=== PATIENT | female | born 1980 | race Caucasian/White ===

== ENCOUNTER 2017-10-08 16:42 | Emergency (ER) | payer MEDICARE, MEDICAID ==
[~2017-10-08] VITALS: Ht 167.6 cm; Wt 98.0 kg
[~2017-10-08 16:42] MED LIST: PARO40TA2 PO; PERC5TAB12 PO; SUMA6P SQ; TOPI100 PO; XANA2TAB2 PO
[2017-10-08 17:05] VITALS: BP 135/64; PULSE 71; RESP 16; TEMP 98.5; O2SAT 100
[2017-10-08 19:01] VITALS: BP 115/52; PULSE 82; RESP 16; O2SAT 100
[2017-10-08] MEDS ORDERED: LIDOCAINE HCL 1% 50 ML VIAL INFIL ONE (19:30)
[2017-10-08] MEDS ORDERED: oxyCODONE/ACETAMINOPHEN 5 MG/325 MG TAB PO ONE (19:30)
[2017-10-08] MEDS ORDERED: LIDOCAINE HCL 1% PF 10 ML VIAL INFIL ONE (19:45)
--- NOTE | 2017-10-08 20:23 | PD ---
HPI Chief Complaint: Skin Problem Time Seen by Provider: 19:11 Travel History International Travel<30 days: No Contact w/Intl Traveler<30days: No Traveled to known affect area: No History of Present Illness HPI Patient is a 37 year old female who comes in complaining of a painful abscess to her left breast. She says it has been there for about a month. She was seen at another hospital 2 weeks ago, given IV antibiotics and sent home without any prescriptions per patient. She says it got better, but then got worse again in the past few days. She reports drainage of pus earlier in the week. She has not taken anything for the pain. She denies fever or chills. Touching it makes the pain worse. Severity is moderate. PFSH Past Medical History Hx Anticoagulant Therapy: No Arthritis: No Asthma: Yes (CHILDHOOD) Heart Rhythm Problems: Yes Cancer: No Cardiovascular Problems: Yes (HTN, CHOL) High Cholesterol: Yes Chest Pain: Yes Congestive Heart Failure: No COPD: No Cerebrovascular Accident: No Diabetes: No Diminished Hearing: No Endocrine: No GERD: No Genitourinary: No Headaches: No Hepatitis: No Hiatal Hernia: No Hypertension: Yes Immune Disorder: No Implanted Vascular Access Dvce: No Kidney Stones: No Musculoskeletal: Yes Neurologic: No Psychiatric: No Reproductive: No Respiratory: Yes Migraines: Yes Myocardial Infarction: Yes ( 2004; MITRAL VALVE PROLAPSE) Renal Failure: No Seizures: Yes Sleep Apnea: No Ulcer: No Influenza Vaccination: No ?: Not : 4 Para: 2 Miscarriage: 2 Tubal Ligation: Yes Past Surgical History Abdominal Surgery: No Appendectomy: No Cardiac Surgery: Yes (DX MVP) Cholecystectomy: No Ear Surgery: No Endocrine Surgery: No Eye Surgery: No Genitourinary Surgery: No Gynecologic Surgery: Yes (TUBAL LIGATION) Oral Surgery: No Thoracic Surgery: No Other Surgery: Yes (BREAST AUGMANTATION) Social History Alcohol Use: Yes (SOCIAL) Tobacco Use: Yes (1 PPD) Substance Use: No Allergies-Medications (Allergen,Severity, Reaction): Coded Allergies: diatrizoate meglumine (Unverified Allergy, Severe, Hives, 10/08/17) gadobenic acid (Unverified Allergy, Severe, Hives, 10/08/17) gadodiamide (Unverified Allergy, Severe, Hives, 10/08/17) gadoteridol (Unverified Allergy, Severe, Hives, 10/08/17) iodine (Unverified Allergy, Severe, ITCH, 10/08/17) iodixanol (Unverified Allergy, Severe, Hives, 10/08/17) iohexol (Unverified Allergy, Severe, Hives, 10/08/17) potassium iodide (Unverified Allergy, Severe, ITCH, 10/08/17) povidone-iodine (Unverified Allergy, Severe, ITCH, 10/08/17) sodium iodide (Unverified Allergy, Severe, ITCH, 10/08/17) Reported Meds & Prescriptions Reported Meds & Active Scripts Active Keflex (Cephalexin) 500 Mg Capsule 500 Mg PO Q6H 7 Days Bactrim DS (Sulfamethoxazole-Trimethoprim) 800-160 Mg Tab 1 Tab PO BID Review of Systems Except as stated in HPI: all other systems reviewed are Neg General / Constitutional: No: Fever, Chills HENT: No: Headaches, Lightheadedness Cardiovascular: No: Chest Pain or Discomfort Respiratory: No: Shortness of Breath Gastrointestinal: No: Nausea, Vomiting Skin: Positive Lesions Neurologic: No: Weakness, Dizziness Physical Exam Narrative GENERAL: Awake and alert, in no acute distress. SKIN: 4cm area of erythema on the lateral side of the left breast. 2cm area of fluctuance. HEAD: Atraumatic. Normocephalic. EYES: Pupils equal and round. No scleral icterus. ENT: Mucous membranes pink and moist. NECK: Trachea midline. No JVD. CARDIOVASCULAR: Regular rate and rhythm. No murmur appreciated. RESPIRATORY: No accessory muscle use. Clear to auscultation. Breath sounds equal bilaterally. MUSCULOSKELETAL: No obvious deformities. No clubbing. No cyanosis. No edema. NEUROLOGICAL: Awake and alert. No obvious cranial nerve deficits. Motor grossly within normal limits. Normal speech. PSYCHIATRIC: Appropriate mood and affect; insight and judgment normal. Data Data Last Documented VS Vital Signs Date Time Temp Pulse Resp B/P (MAP) Pulse Ox O2 Delivery O2 Flow Rate FiO2 10/08/17 20:54 76 16 130/72 (91) 100 10/08/17 19:01 Room Air 10/08/17 17:05 98.5 Orders Orders Oxycodone-Acetamin 5-325 Mg (Percocet (10/08/17 19:30) Lidocaine Pf 1% Inj (Xylocaine-Mpf 1% In (10/08/17 19:45) Ed Discharge Order (10/08/17 20:29) [facility] Medical Decision Making Medical Screen Exam Complete: Yes Emergency Medical Condition: Yes Medical Record Reviewed: Yes Differential Diagnosis Abscess vs cellulitis vs insect bite Narrative Course Patient is a 37-year-old male comes in complaining of a painful sore to the left side of her breast. She denies any other breast issues. Exam shows evidence of cellulitis with an abscess. Abscess was drained. Patient given pain medicine. She will be discharged with prescriptions for Bactrim and Keflex. Advised to follow-up with a primary care doctor. Advised to return to the ED as needed for any worsening symptoms. Procedures Procedure Narrative INCISION AND DRAINAGE OF ABSCESS: The area was prepped and was sterilely draped. A subcutaneous wheal of 1 % Xylocaine with a total number 8 mL was used to anesthetize the area properly. A number 11 scalpel was used to make a 1 -cm incision across the area of the abscess. The abscess was drained, complex loculations were broken down, and irrigated with normal saline. Diagnosis Primary Impression: Cellulitis and abscess of unspecified site Referrals: Franki Jackson MD call for appointment Patient Instructions: Abscess (ED), General Instructions Additional Instructions: Take all of your antibiotic. Apply warm compresses to keep the area open and draining. Take Tylenol or ibuprofen as needed for pain. Follow-up with a general surgeon to make sure everything is healing well. Follow-up with a primary care doctor. Return to the ED as needed for any worsening symptoms. Scripts Cephalexin (Keflex) 500 Mg Capsule 500 MG PO Q6H for Infection for 7 Days, #28 CAP 0 Refills Prov: Elaina Singh MD 10/08/17 Sulfamethoxazole-Trimethoprim (Bactrim DS) 800-160 Mg Tab 1 TAB PO BID for Infection, #14 TAB 0 Refills Prov: Elaina Singh MD 10/08/17 Disposition: 01 DISCHARGE HOME Condition: Stable Elaina Singh MD Oct 08, 2017 20:23
[2017-10-08] MEDS ORDERED: BACT800T5 PO (20:29)
[2017-10-08] MEDS ORDERED: CEPH-460 PO (20:29)
[2017-10-08 20:54] VITALS: BP 130/72
== END 2017-10-08 20:56 | disposition home or self-care (01) ==
LOC: PHED 16:42
DX: N61.1 Abscess of the breast and nipple (principal); F17.200 Nicotine dependence, unspecified, uncomplicated
CPT/HCPCS: 10060

== ENCOUNTER 2017-11-14 23:54 | Emergency (ER) | payer MEDICARE, MEDICAID ==
[~2017-11-14] VITALS: Ht 167.6 cm; Wt 96.7 kg
[~2017-11-14 23:54] MED LIST changes: +BACT800T5 PO; +CEPH-460 PO; -PARO40TA2 PO; -PERC5TAB12 PO; -SUMA6P SQ; -TOPI100 PO; -XANA2TAB2 PO
[2017-11-14 23:59] VITALS: BP 123/60; PULSE 90; RESP 20; TEMP 98.6
--- NOTE | 2017-11-15 00:38 | PD ---
HPI Chief Complaint: Skin Problem Time Seen by Provider: 00:36 Travel History International Travel<30 days: No Contact w/Intl Traveler<30days: No Traveled to known affect area: No History of Present Illness HPI 37-year-old female patient with previous history of staph skin infections, presents to the ER today because she states that 2 days ago she had a pustule on her lower abdominal wall and then the area started getting more swollen and tender and red. She states that the area just writing. She denies any other issues. She noticed that it has been draining a small amount of bloody fluid. Modifying Factors: None Associated Signs & Symptoms: Abdominal wall swelling and redness Risk Factors: History of staph skin infections PFSH Past Medical History Hx Anticoagulant Therapy: No Arthritis: No Asthma: Yes (CHILDHOOD) Heart Rhythm Problems: Yes Cancer: No Cardiovascular Problems: Yes (HTN, CHOL) High Cholesterol: Yes Chest Pain: Yes Congestive Heart Failure: No COPD: No Cerebrovascular Accident: No Diabetes: No Diminished Hearing: No Endocrine: No GERD: No Genitourinary: No Headaches: No Hepatitis: No Hiatal Hernia: No Hypertension: Yes Immune Disorder: No Implanted Vascular Access Dvce: No Kidney Stones: No Medical other: Yes (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)) Musculoskeletal: Yes Neurologic: No Psychiatric: No Reproductive: No Respiratory: Yes Migraines: Yes Myocardial Infarction: Yes ( 2004; MITRAL VALVE PROLAPSE) Renal Failure: No Seizures: Yes Sleep Apnea: No Ulcer: No Tetanus Vaccination: Never Vaccinated ?: Not LMP: 2012 : 4 Para: 2 Miscarriage: 2 Tubal Ligation: Yes Past Surgical History Abdominal Surgery: No Appendectomy: No Cardiac Surgery: Yes (DX MVP) Cholecystectomy: No Ear Surgery: No Endocrine Surgery: No Eye Surgery: No Genitourinary Surgery: No Gynecologic Surgery: Yes (TUBAL LIGATION, UTERINE ABLATION: 2012) Oral Surgery: No Thoracic Surgery: No Other Surgery: Yes (BREAST AUGMENTATION) Social History Alcohol Use: Yes ("SOCIALLY ONCE A YEAR") Tobacco Use: Yes (1 PPD) Substance Use: No Allergies-Medications (Allergen,Severity, Reaction): Coded Allergies: diatrizoate meglumine (Unverified Allergy, Severe, Hives, 11/15/17) gadobenic acid (Unverified Allergy, Severe, Hives, 11/15/17) gadodiamide (Unverified Allergy, Severe, Hives, 11/15/17) gadoteridol (Unverified Allergy, Severe, Hives, 11/15/17) iodine (Unverified Allergy, Severe, ITCH, 11/15/17) iodixanol (Unverified Allergy, Severe, Hives, 11/15/17) iohexol (Unverified Allergy, Severe, Hives, 11/15/17) potassium iodide (Unverified Allergy, Severe, ITCH, 11/15/17) povidone-iodine (Unverified Allergy, Severe, ITCH, 11/15/17) sodium iodide (Unverified Allergy, Severe, ITCH, 11/15/17) Reported Meds & Prescriptions Reported Meds & Active Scripts Active No Active Prescriptions or Reported Medications Review of Systems Except as stated in HPI: all other systems reviewed are Neg Physical Exam Narrative GENERAL: Well-developed young female patient currently in mild distress. Awake and oriented 3. SKIN: Focused skin assessment warm/dry. HEAD: Atraumatic. Normocephalic. EYES: Pupils equal and round. No scleral icterus. No injection or drainage. ENT: No nasal bleeding or discharge. Mucous membranes pink and moist. NECK: Trachea midline. No JVD. CARDIOVASCULAR: Regular rate and rhythm. No murmur appreciated. RESPIRATORY: No accessory muscle use. Clear to auscultation. Breath sounds equal bilaterally. GASTROINTESTINAL: Abdomen soft, there is a 4 cm area of induration and tenderness on the lower abdominal wall with surrounding erythema and there is notable pus drainage from a small puncture wound, nondistended. Hepatic and splenic margins not palpable. MUSCULOSKELETAL: No obvious deformities. No clubbing. No cyanosis. No edema. NEUROLOGICAL: Awake and alert. No obvious cranial nerve deficits. Motor grossly within normal limits. Normal speech. PSYCHIATRIC: Appropriate mood and affect; insight and judgment normal. Data Data Last Documented VS Vital Signs Date Time Temp Pulse Resp B/P (MAP) Pulse Ox O2 Delivery O2 Flow Rate FiO2 11/14/17 23:59 98.6 90 20 123/60 (81) Orders Orders Lidocaine 1% Inj (50 Ml) (Xylocaine 1% I (11/15/17 00:45) Lidocaine 1% Inj (Xylocaine 1% Inj) (11/15/17 00:45) Lidocaine 1% Inj (Xylocaine 1% Inj) (11/15/17 00:40) Ed Discharge Order (11/15/17 01:31) Sulfamet-Trimeth Ds 800-160 Mg (Bactrim (11/15/17 01:45) MDM Medical Decision Making Medical Screen Exam Complete: Yes Emergency Medical Condition: Yes Medical Record Reviewed: Yes Differential Diagnosis Abdominal wall abscess Narrative Course Abdominal wall abscess was drained by me in the ER. Patient was given Bactrim as well since there is a large area of surrounding induration. Planning to release with follow-up for reevaluation of wound in 2 days. Return for any worsening of pain, swelling, fevers, and as needed. The plan has been discussed with her and she states understanding. Procedures Procedure Narrative INCISION AND DRAINAGE OF ABSCESS: The area was prepped and was sterilely draped. A subcutaneous wheal of % Xylocaine 1% with a total number 3 cc small mL was used to anesthetize the area. The area was properly anesthetized. A small scalpel was used to make a 1-] -cm incision across the area of the abscess. Cultures were obtained. The abscess was drained an irrigated with normal saline. iodoform packing was placed in the wound. Sterile dressing applied. Patient advised to have packing removed in two days. Diagnosis Primary Impression: Abdominal wall abscess Med/Other Pt SpecificInfo: Prescription(s) given Scripts Ibuprofen (Ibuprofen) 600 Mg Tab 600 MG PO Q6H Y for Pain/Inflammation, #20 TAB 0 Refills Prov: Rod Keith MD 11/15/17 Sulfamethoxazole-Trimethoprim (Bactrim DS) 800-160 Mg Tab 1 TAB PO BID for Infection, #14 TAB 0 Refills Prov: Rod Keith MD 11/15/17 Disposition: 01 DISCHARGE HOME Condition: Stable Rod Keith MD Nov 15, 2017 00:38
[2017-11-15] MEDS ORDERED: LIDOCAINE HCL 1% 20 ML VIAL ONE (00:40)
[2017-11-15] MEDS ORDERED: LIDOCAINE HCL 1% 50 ML VIAL INFIL ONE (00:45)
[2017-11-15] MEDS ORDERED: LIDOCAINE HCL 1% 20 ML VIAL INFIL ONE (00:45)
[2017-11-15] MEDS ORDERED: BACT800T5 PO (01:33)
[2017-11-15] MEDS ORDERED: IBUP-232 PO (01:33)
[2017-11-15] MEDS ORDERED: SULFAMETHOXAZOLE-TRIMETHOPRIM DS 800-160 MG TAB PO ONE (01:45)
== END 2017-11-15 02:03 | disposition home or self-care (01) ==
LOC: PHED 23:54
DX: L02.211 Cutaneous abscess of abdominal wall (principal); I10 Essential (primary) hypertension; B95.62 Methicillin resistant Staphylococcus aureus infection as the cause of diseases classified elsewhere; Z72.0 Tobacco use
CPT/HCPCS: 10061; 86403; 87070; 87186

== ENCOUNTER 2018-02-01 12:01 | Observation (INO) | payer MEDICARE, MEDICAID ==
[~2018-02-01] VITALS: Ht 167.6 cm; Wt 100.0 kg
[2018-02-01] VITALS (8 sets, daily range): BP systolic 98–138; BP diastolic 49–86; PULSE 69–97; RESP 15–22; TEMP 95.7–98.4; O2SAT 96–100
[~2018-02-01 12:01] MED LIST changes: -CEPH-460 PO; +IBUP-232 PO
[2018-02-01] MEDS ORDERED: OXYC30TA PO (12:19)
[2018-02-01] MEDS ORDERED: SOMA350T PO (12:19)
[2018-02-01] MEDS ORDERED: SODIUM CHLOR 0.9% 1000 ML INJ 1,000 ML IV ONE ×2 (12:29→14:45)
[2018-02-01] MEDS ORDERED: SODIUM CHLORIDE 0.9% FLUSH 10 ML FLUSH IVF PRN (12:30)
--- NOTE | 2018-02-01 12:32 | PD ---
HPI Chief Complaint: Medical Clearance Time Seen by Provider: 12:04 Travel History International Travel<30 days: No Contact w/Intl Traveler<30days: No Traveled to known affect area: No History of Present Illness HPI 37-year-old female presents to the emergency department for evaluation of dizziness, slurred speech. Patient does not know what time it started, believes she woke up with these symptoms. Patient denies any exacerbating or alleviating factors with the dizziness and states it is steady. She also states she is having difficulty getting words out and feels like her speech is slurred. She denies any headache or visual changes. She reports generalized weakness, but no specific extremity weakness. Patient denies any alcohol or illicit drug use. She denies any chest pain or shortness breath. She denies abdominal pain. No nausea, vomiting, diarrhea. Patient reports history of chronic neck pain, states she had a stroke in 2003. Other than chronic neck pain, she denies any other pain at this time. She states that her mother and son were concerned so they called EMS. Moderate severity. PFSH Past Medical History Hx Anticoagulant Therapy: No Arthritis: No Asthma: Yes (CHILDHOOD) Heart Rhythm Problems: Yes Cancer: No Cardiovascular Problems: Yes (HTN, CHOL) High Cholesterol: Yes Chest Pain: Yes Congestive Heart Failure: No COPD: No Cerebrovascular Accident: No Diabetes: No Diminished Hearing: No Endocrine: No GERD: No Genitourinary: No Headaches: No Hepatitis: No Hiatal Hernia: No Hypertension: Yes Immune Disorder: No Implanted Vascular Access Dvce: No Kidney Stones: No Musculoskeletal: Yes Neurologic: No Psychiatric: No Reproductive: No Respiratory: Yes Migraines: Yes Myocardial Infarction: Yes ( 2004; MITRAL VALVE PROLAPSE) Renal Failure: No Seizures: Yes Sleep Apnea: No Ulcer: No Tetanus Vaccination: < 5 Years ?: Not LMP: 2002 : 4 Para: 2 Miscarriage: 2 Tubal Ligation: Yes Past Surgical History Abdominal Surgery: No Appendectomy: No Cardiac Surgery: Yes (DX MVP) Cholecystectomy: No Ear Surgery: No Endocrine Surgery: No Eye Surgery: No Genitourinary Surgery: No Gynecologic Surgery: Yes (TUBAL LIGATION, UTERINE ABLATION: 2012) Oral Surgery: No Thoracic Surgery: No Other Surgery: Yes (BREAST AUGMENTATION) Social History Alcohol Use: No (DENIES) Tobacco Use: Yes (1 PPD) Substance Use: Yes (MARIJUANA) Allergies-Medications (Allergen,Severity, Reaction): Coded Allergies: diatrizoate meglumine (Unverified Allergy, Severe, Hives, 11/15/17) gadobenic acid (Unverified Allergy, Severe, Hives, 11/15/17) gadodiamide (Unverified Allergy, Severe, Hives, 11/15/17) gadoteridol (Unverified Allergy, Severe, Hives, 11/15/17) iodine (Unverified Allergy, Severe, ITCH, 11/15/17) iodixanol (Unverified Allergy, Severe, Hives, 11/15/17) iohexol (Unverified Allergy, Severe, Hives, 11/15/17) potassium iodide (Unverified Allergy, Severe, ITCH, 11/15/17) povidone-iodine (Unverified Allergy, Severe, ITCH, 11/15/17) sodium iodide (Unverified Allergy, Severe, ITCH, 11/15/17) Reported Meds & Prescriptions Reported Meds & Active Scripts Active Reported Oxycodone (Oxycodone HCl) 30 Mg Tab 30 Mg PO Q6H PRN Soma (Carisoprodol) 350 Mg Tab 350 Mg PO QID PRN Review of Systems Except as stated in HPI: all other systems reviewed are Neg Physical Exam Narrative GENERAL: Well-nourished, well-developed female patient, afebrile. Patient is alert and oriented to person, place, and time. SKIN: Focused skin assessment warm/dry. HEAD: Normocephalic. Atraumatic ENT: Mucosa pink and moist. No erythema or exudates. No uvular edema. No uvular , palatal, or tonsillar deviation. Airway patent. Nasal turbinates appear normal without nasal blood, purulent drainage or septal hematoma. Bilateral tympanic membranes slightly erythematous without loss of landmarks or perforation. EYES: No scleral icterus. No injection or drainage. PERRLA. NECK: Supple, trachea midline. No JVD or lymphadenopathy. CARDIOVASCULAR: Regular rate and rhythm without murmurs, gallops, or rubs. Bilateral radial and pedal pulses are 2+ RESPIRATORY: Breath sounds equal bilaterally. No accessory muscle use. Lung sounds are clear to auscultation. GASTROINTESTINAL: Abdomen soft, non-tender, nondistended. No abdominal tenderness to palpation peer MUSCULOSKELETAL: No cyanosis, or edema. Bilateral upper and lower extremity strength 5/5. All extremities are shaky on exam. All extremities are neurovascularly intact. BACK: Nontender without obvious deformity. No CVA tenderness. NEUROLOGICAL: Awake and alert. Cranial nerves II through XII intact. Motor and sensory grossly within normal limits. Five out of 5 muscle strength in all muscle groups. Speech is slightly slurred, does have difficulty getting words out on exam. Finger to nose is normal bilaterally. Heel to hooker is normal bilaterally. Data Data Last Documented VS Vital Signs Date Time Temp Pulse Resp B/P (MAP) Pulse Ox O2 Delivery O2 Flow Rate FiO2 02/01/18 14:37 85 127/61 (83) 92 106/49 (68) 55 98/55 (69) 02/01/18 13:58 98.1 02/01/18 12:43 98 Room Air 02/01/18 12:09 15 Orders Orders Electrocardiogram (02/01/18 12:29) Ed Urine Pregnancytest Poc (02/01/18 12:29) Complete Blood Count With Diff (02/01/18 12:29) Comprehensive Metabolic Panel (02/01/18 12:29) Magnesium (Mg) (02/01/18 12:29) Ckmb (Isoenzyme) Profile (02/01/18 12:29) Troponin I (02/01/18 12:29) Act Partial Throm Time (Ptt) (02/01/18 12:29) Prothrombin Time / Inr (Pt) (02/01/18 12:29) Urinalysis - C+S If Indicated (02/01/18 12:29) Ct Brain W/O Iv Contrast(Rout) (02/01/18 12:29) Ecg Monitoring (02/01/18 12:29) Iv Access Insert/Monitor (02/01/18 12:29) Oximetry (02/01/18 12:29) Sodium Chloride 0.9% Flush (Ns Flush) (02/01/18 12:30) Sodium Chlor 0.9% 1000 Ml Inj (Ns 1000 M (02/01/18 12:29) Drug Screen, Random Urine (02/01/18 12:32) Orthostatic Vital Signs (02/01/18 14:15) Sodium Chlor 0.9% 1000 Ml Inj (Ns 1000 M (02/01/18 14:45) Urine Culture (02/01/18 13:53) Admit Order (Ed Use Only) (02/01/18 15:27) Labs Laboratory Tests Test 02/01/18 12:30 02/01/18 13:53 White Blood Count 6.6 TH/MM3 Red Blood Count 4.02 MIL/MM3 Hemoglobin 13.5 GM/DL Hematocrit 37.7 % Mean Corpuscular Volume 93.8 FL Mean Corpuscular Hemoglobin 33.6 PG Mean Corpuscular Hemoglobin Concent 35.9 % Red Cell Distribution Width 13.6 % Platelet Count 251 TH/MM3 Mean Platelet Volume 7.7 FL Neutrophils (%) (Auto) 40.4 % Lymphocytes (%) (Auto) 43.0 % Monocytes (%) (Auto) 6.5 % Eosinophils (%) (Auto) 8.7 % Basophils (%) (Auto) 1.4 % Neutrophils # (Auto) 2.6 TH/MM3 Lymphocytes # (Auto) 2.8 TH/MM3 Monocytes # (Auto) 0.4 TH/MM3 Eosinophils # (Auto) 0.6 TH/MM3 Basophils # (Auto) 0.1 TH/MM3 CBC Comment DIFF FINAL Differential Comment Prothrombin Time 10.0 SEC Prothromb Time International Ratio 1.0 RATIO Activated Partial Thromboplast Time 27.8 SEC Blood Urea Nitrogen 4 MG/DL Creatinine 0.80 MG/DL Random Glucose 94 MG/DL Total Protein 6.3 GM/DL Albumin 3.0 GM/DL Calcium Level 8.5 MG/DL Magnesium Level 1.7 MG/DL Alkaline Phosphatase 65 U/L Aspartate Amino Transf (AST/SGOT) 43 U/L Alanine Aminotransferase (ALT/SGPT) 40 U/L Total Bilirubin 0.2 MG/DL Sodium Level 141 MEQ/L Potassium Level 3.6 MEQ/L Chloride Level 107 MEQ/L Carbon Dioxide Level 25.3 MEQ/L Anion Gap 9 MEQ/L Estimat Glomerular Filtration Rate 80 ML/MIN Total Creatine Kinase 51 U/L Troponin I LESS THAN 0.02 NG/ML Urine Color YELLOW Urine Turbidity HAZY Urine pH 6.5 Urine Specific [place] 1.011 Urine Protein NEG mg/dL Urine Glucose (UA) NEG mg/dL Urine Ketones NEG mg/dL Urine Occult Blood NEG Urine Nitrite NEG Urine Bilirubin NEG Urine Urobilinogen LESS THAN 2.0 MG/DL Urine Leukocyte Esterase MOD Urine RBC 1 /hpf Urine WBC 7 /hpf Urine Squamous Epithelial Cells 2 /hpf Urine Amorphous Sediment RARE Urine Bacteria OCC /hpf Microscopic Urinalysis Comment CATH-CULTURE IND Urine Opiates Screen NEG Urine Barbiturates Screen NEG Urine Amphetamines Screen NEG Urine Benzodiazepines Screen NEG Urine Cocaine Screen NEG Urine Cannabinoids Screen NEG MDM Medical Decision Making Medical Screen Exam Complete: Yes Emergency Medical Condition: Yes Medical Record Reviewed: Yes Differential Diagnosis vertigo vs. CVA vs. TIA vs. electrolyte abnormality vs. dehydration vs. UTI vs. intracranial hemorrhage Narrative Course 37 year old female presents to the emergency department for evaluation of dizziness, slurred speech, unknown onset. EKG shows SR, HR 97, no acute ST changes. CBC, CMP, magnesium, CK, troponin, PTT, PT/INR, UA, UPT, UDS are ordered and pending. Patient is given NS 1 L IV bolus. CBC shows no acute abnormality. CMP shows no acute abnormality. Magnesium is 1.7. CK is 51. Troponin is less than 0.02. Coags are unremarkable. UA shows moderate leukocyte esterase, 7 WBC. UPT is negative. UDS is negative. Metastatic vital signs do show orthostatic hypotension. Patient is given second liter normal saline IV bolus. I discussed the case with my attending physician, Dr. Atkins, who is also examined patient. He agrees with plan and disposition. Patient will be brought in for observation for further evaluation. Diagnosis Primary Impression: Dizziness Additional Impressions: Generalized weakness Orthostatic hypotension Admitting Information Admitting Physician Requests: Observation Britt Hayes February 01, 2018 12:32
[2018-02-01 12:58] LABS: AUTOMATED NEUTROPHIL # 2.6 TH/MM3 (1.8-7.7); BASOPHIL # 0.1 TH/MM3 (0-0.2); BASOPHIL % 1.4 % (0.0-2.0); EOSINOPHIL # 0.6 TH/MM3 (0-0.4); EOSINOPHIL % 8.7 % (0.0-4.0); HEMATOCRIT 37.7 % (35.0-46.0); HEMOGLOBIN 13.5 GM/DL (11.6-15.3); LYMPHOCYTE # 2.8 TH/MM3 (1.0-4.8); MEAN CELL VOLUME 93.8 FL (80.0-100.0); MEAN CORPUSCULAR HEMOGLOBIN 33.6 PG (27.0-34.0); MEAN CORPUSCULAR HGB CONC 35.9 % (32.0-36.0); MEAN PLATELET VOLUME 7.7 FL (7.0-11.0); MONO % 6.5 % (0.0-8.0); MONOCYTE # 0.4 TH/MM3 (0-0.9); NEUT % 40.4 % (16.0-70.0); PLATELET COUNT 251 TH/MM3 (150-450); RED BLOOD COUNT 4.02 MIL/MM3 (4.00-5.30); RED CELL DISTRIBUTION WIDTH 13.6 % (11.6-17.2); WHITE BLOOD COUNT 6.6 TH/MM3 (4.0-11.0)
[2018-02-01 13:14] LABS: ALT (GPT) 40 U/L (10-53); AST (GOT) 43 U/L (15-37); BICARBONATE 25.3 MEQ/L (21.0-32.0); BLOOD UREA NITROGEN 4 MG/DL (7-18); CALCIUM 8.5 MG/DL (8.5-10.1); CHLORIDE 107 MEQ/L (98-107); GLOMERULAR FILTRATION RATE 80 ML/MIN (>89); GLUCOSE,RANDOM 94 MG/DL (74-106); MAGNESIUM 1.7 MG/DL (1.5-2.5); SODIUM (NA) 141 MEQ/L (136-145)
[2018-02-01 13:18] LABS: ALKALINE PHOSPHATASE 65 U/L (45-117); TOTAL BILIRUBIN ADULT 0.2 MG/DL (0.2-1.0); TOTAL PROTEIN 6.3 GM/DL (6.4-8.2); TROPONIN I LESS THAN 0.02 NG/ML (0.02-0.05)
--- NOTE | 2018-02-01 14:14 | RADRPT ---
EXAM DATE: 02/01/2018 2:01 PM EDT AGE/SEX: 37 years / Female INDICATIONS: Weakness, slurred speech, unsteady gait CLINICAL DATA: This is the patient's initial encounter. Patient reports that signs and symptoms have been present for 1 day and indicates a pain score of 0/10. MEDICAL/SURGICAL HISTORY: Cardiovascular disease. Hypertension. Tubal ligation. RADIATION DOSE: 66.34 CTDI (mGy) COMPARISON: No prior [place] exams available for comparison. TECHNIQUE: CT of the head without contrast. Using automated exposure control and adjustment of the mA and/or kV according to patient size, radiation dose was kept as low as reasonably achievable to ob tain optimal diagnostic quality images. FINDINGS: Cerebrum: The ventricles are normal for age. No evidence of midline shift, mass lesion, hemorrhage or acute infarction. No extraaxial fluid collections are seen. Posterior Fossa: The cerebellum and brainstem are intact. The 4th ventricle is midline. The cerebe llopontine angle is unremarkable. Extracranial: The visualized portion of the orbits is intact. Skull: The calvaria is intact. No evidence of skull fracture. CONCLUSION: 1. No acute intracranial abnormality Electronically signed by: Gage Marroquin MD 02/01/2018 2:13 PM EDT
[2018-02-01 14:42] LABS: AMORPHOUS SEDIMENT, URINE RARE; BACTERIA, URINE OCC /hpf; BILIRUBIN, URINE NEG (NEG); BLOOD, URINE NEG (NEG); GLUCOSE,URINE NEG (NEG); KETONE, URINE NEG (NEG); NITRITE,URINE NEG (NEG); PH, URINE 6.5 (5.0-8.5); SQUAMOUS EPITHELIAL CELL URINE 2 /hpf (0-5); URINE COLOR YELLOW (YELLW/STRAW); URINE LEUKOCYTE ESTERASE MOD (NEG)
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
[2018-02-01] MEDS ORDERED: GLUCAGON 1 MG/ML VIAL OTHER PRN (16:15)
[2018-02-01] MEDS ORDERED: DEXTROSE 50% IN WATER 50 ML VIAL(D50) IV PUSH PRN (16:15)
[2018-02-01] MEDS ORDERED: ENALAPRILAT 1.25 MG/ML VIAL IV PUSH PRN (16:15)
[2018-02-01] MEDS ORDERED: SODIUM CHLORIDE 0.9% FLUSH 10 ML FLUSH IV FLUSH PRN (16:15)
--- NOTE | 2018-02-01 16:57 | PD ---
Data Data Last Documented VS Vital Signs Date Time Temp Pulse Resp B/P (MAP) Pulse Ox O2 Delivery O2 Flow Rate FiO2 02/01/18 14:37 85 127/61 (83) 92 106/49 (68) 55 98/55 (69) 02/01/18 13:58 98.1 02/01/18 12:43 98 Room Air 02/01/18 12:09 15 Orders Orders Electrocardiogram (02/01/18 12:29) Ed Urine Pregnancytest Poc (02/01/18 12:29) Complete Blood Count With Diff (02/01/18 12:29) Comprehensive Metabolic Panel (02/01/18 12:29) Magnesium (Mg) (02/01/18 12:29) Ckmb (Isoenzyme) Profile (02/01/18 12:29) Troponin I (02/01/18 12:29) Act Partial Throm Time (Ptt) (02/01/18 12:29) Prothrombin Time / Inr (Pt) (02/01/18 12:29) Urinalysis - C+S If Indicated (02/01/18 12:29) Ct Brain W/O Iv Contrast(Rout) (02/01/18 12:29) Ecg Monitoring (02/01/18 12:29) Iv Access Insert/Monitor (02/01/18 12:29) Oximetry (02/01/18 12:29) Sodium Chloride 0.9% Flush (Ns Flush) (02/01/18 12:30) Sodium Chlor 0.9% 1000 Ml Inj (Ns 1000 M (02/01/18 12:29) Drug Screen, Random Urine (02/01/18 12:32) Orthostatic Vital Signs (02/01/18 14:15) Sodium Chlor 0.9% 1000 Ml Inj (Ns 1000 M (02/01/18 14:45) Urine Culture (02/01/18 13:53) Admit Order (Ed Use Only) (02/01/18 15:27) Labs Laboratory Tests Test 02/01/18 12:30 02/01/18 13:53 White Blood Count 6.6 TH/MM3 Red Blood Count 4.02 MIL/MM3 Hemoglobin 13.5 GM/DL Hematocrit 37.7 % Mean Corpuscular Volume 93.8 FL Mean Corpuscular Hemoglobin 33.6 PG Mean Corpuscular Hemoglobin Concent 35.9 % Red Cell Distribution Width 13.6 % Platelet Count 251 TH/MM3 Mean Platelet Volume 7.7 FL Neutrophils (%) (Auto) 40.4 % Lymphocytes (%) (Auto) 43.0 % Monocytes (%) (Auto) 6.5 % Eosinophils (%) (Auto) 8.7 % Basophils (%) (Auto) 1.4 % Neutrophils # (Auto) 2.6 TH/MM3 Lymphocytes # (Auto) 2.8 TH/MM3 Monocytes # (Auto) 0.4 TH/MM3 Eosinophils # (Auto) 0.6 TH/MM3 Basophils # (Auto) 0.1 TH/MM3 CBC Comment DIFF FINAL Differential Comment Prothrombin Time 10.0 SEC Prothromb Time International Ratio 1.0 RATIO Activated Partial Thromboplast Time 27.8 SEC Blood Urea Nitrogen 4 MG/DL Creatinine 0.80 MG/DL Random Glucose 94 MG/DL Total Protein 6.3 GM/DL Albumin 3.0 GM/DL Calcium Level 8.5 MG/DL Magnesium Level 1.7 MG/DL Alkaline Phosphatase 65 U/L Aspartate Amino Transf (AST/SGOT) 43 U/L Alanine Aminotransferase (ALT/SGPT) 40 U/L Total Bilirubin 0.2 MG/DL Sodium Level 141 MEQ/L Potassium Level 3.6 MEQ/L Chloride Level 107 MEQ/L Carbon Dioxide Level 25.3 MEQ/L Anion Gap 9 MEQ/L Estimat Glomerular Filtration Rate 80 ML/MIN Total Creatine Kinase 51 U/L Troponin I LESS THAN 0.02 NG/ML Urine Color YELLOW Urine Turbidity HAZY Urine pH 6.5 Urine Specific [place] 1.011 Urine Protein NEG mg/dL Urine Glucose (UA) NEG mg/dL Urine Ketones NEG mg/dL Urine Occult Blood NEG Urine Nitrite NEG Urine Bilirubin NEG Urine Urobilinogen LESS THAN 2.0 MG/DL Urine Leukocyte Esterase MOD Urine RBC 1 /hpf Urine WBC 7 /hpf Urine Squamous Epithelial Cells 2 /hpf Urine Amorphous Sediment RARE Urine Bacteria OCC /hpf Microscopic Urinalysis Comment CATH-CULTURE IND Urine Opiates Screen NEG Urine Barbiturates Screen NEG Urine Amphetamines Screen NEG Urine Benzodiazepines Screen NEG Urine Cocaine Screen NEG Urine Cannabinoids Screen NEG MDM Supervised Visit with RICK: Yes Narrative Course The history, exam, and medical decision-making in the associated mid-level provider note were completed with my assistance. I reviewed and agree with the findings presented. I attest that I had a [id number] encounter with the patient on the same day, and personally performed and documented my assessment and findings in the medical record. *My assessment and Findings: 37-year-old woman, woke up with slurred speech and dizziness. Initial impression seems to be likely drug related. Also requires a stroke. Neuro exam at this point is normal except a little bit of sedation. No asymmetry. Initial workup here is normal. Still does not feel well. She is orthostatic with a history of some blood in her stool week or 2 ago. Hemoglobin is unremarkable. Recommend admission for observation. Diagnosis Primary Impression: Dizziness Additional Impressions: Orthostatic hypotension Generalized weakness Micah Atkins MD February 01, 2018 16:57
[2018-02-01] MEDS: INSULIN ASPART SUPPLEMENTAL SCALE SQ SCH ×2 (17:00→20:26)
[2018-02-01] MEDS ORDERED: NON-FORMULARY DRUG (Oxycodone 30 MG) PO PRN ×2 (18:15→18:30)
[2018-02-01] MEDS ORDERED: CARISOPRODOL 350 MG TAB PO PRN (18:15)
--- NOTE | 2018-02-01 18:53 | RADRPT ---
EXAM DATE: 02/01/2018 6:19 PM EDT AGE/SEX: 37 years / Female INDICATIONS: CVA. CLINICAL DATA: This is the patient's initial encounter. Patient reports that signs and symptoms have been present for 1 day and indicates a pain score of 0/10. MEDICAL/SURGICAL HISTORY: Hypercholesterolemia. Hypertension. DE. Seizures. Asthma. Tubal lig ation. Bone fusion in neck. Breast augmentation. COMPARISON: No prior [facility] exams available for comparison. No external comparison. VELOCITY PARAMETERS: ICA/CCA Ratio: Right 1.3 , Left 0.9 ICA: Right 114 cm/sec, Left 89 cm/sec CCA: Right 90 cm/sec, Left 102 cm/sec ECA: Right 101 cm/sec, Left 120 cm/sec Vertebral: Right 49 cm/sec antegrade, Left 40 cm/sec antegrade FINDINGS: Right Carotid: No significant stenosis is visualized. The waveforms are within normal limits. Left Carotid: No significant stenosis is visualized. The waveforms are within normal limits. Other: None. CONCLUSION: Negative for hemodynamically significant carotid stenosis. Electronically signed by: Piyush Hernandez MD 02/01/2018 6:51 PM EDT
[2018-02-01] MEDS ORDERED: ENOXAPARIN SODIUM 40 MG/0.4 ML SYRINGE SQ SCH (20:00)
[2018-02-01] MEDS: SODIUM CHLORIDE 0.9% FLUSH 10 ML FLUSH IV FLUSH SCH (20:26)
[2018-02-02] VITALS: BP 102/53; PULSE 67; RESP 20; TEMP 98; O2SAT 97
[2018-02-02] MEDS: LORazepam 0.5 MG TAB PO PRN ×2 (00:15→12:12)
[2018-02-02 04:00] VITALS: BP 96/53; PULSE 66; RESP 18; TEMP 98.2; O2SAT 95
[2018-02-02 07:37] VITALS: BP 121/98; PULSE 83; RESP 18; TEMP 98.2; O2SAT 96
[2018-02-02 08:00] VITALS: PULSE 81
[2018-02-02] MEDS: INSULIN ASPART SUPPLEMENTAL SCALE SQ SCH ×2 (08:00→12:00)
[2018-02-02] MEDS ORDERED: NITROFURANTOIN MONOHYD MACROCR 100 MG CAP PO SCH (09:00)
[2018-02-02] MEDS: SODIUM CHLORIDE 0.9% FLUSH 10 ML FLUSH IV FLUSH SCH (09:32)
[2018-02-02 11:04] VITALS: BP 141/77; PULSE 77; RESP 18; TEMP 98; O2SAT 98
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
--- NOTE | 2018-02-02 13:28 | RADRPT ---
EXAM DATE: 02/02/2018 1:03 PM EDT AGE/SEX: 37 years / Female INDICATIONS: Dizziness. Generalized weakness, slurred speech CLINICAL DATA: This is the patient's subsequent encounter. Patient reports that signs and symptoms h ave been present for 2 days and indicates a pain score of 0/10. MEDICAL/SURGICAL HISTORY: Hypertension. Hepatitis C Fusion, cervical. Breast augmentation. COMPARISON: No prior [facility] exams available for comparison. TECHNIQUE: Multiplanar, multisequence examination of the brain was performed without contrast. FINDINGS: Cerebrum: The ventricles are normal for age. No evidence of midline shift, mass lesion, hemorrhage or acute infarction. No extraaxial fluid collections are seen. The pituitary gland and suprasellar cistern are normal in configuration. White Matter: Very minimal periventricular white matter changes basal ganglia. Posterior Fossa: The cerebellum and brainstem are intact. The 4th ventricle is midline. The cerebel lopontine angle is unremarkable. The cerebellar tonsils are normal in position. Diffusion Imaging: No focal areas of restricted diffusion are seen. No evidence of acute infarction . Extracranial: The visualized portions of the orbits and paranasal sinuses are unremarkable. CONCLUSION: 1. Negative for an acute process. I do not see any evidence for an ischemic event 2. I do not see evidence for significant demyelinating process. Electronically signed by: Pyiush Hernandez MD 02/02/2018 1:26 PM EDT
[2018-02-02] MEDS ORDERED: NITR100C4 PO (13:45)
--- NOTE | 2018-02-02 13:46 | HHI.DCPOC ---
Discharge Care Plan Diagnosis: (1) Slurred speech (2) UTI (urinary tract infection) Goals to Promote Your Health * To prevent worsening of your condition and complications * To maintain your health at the optimal level Directions to Meet Your Goals Take your medications as prescribed Follow your dietary instruction Follow activity as directed Keep your appointments as scheduled Take your immunizations and boosters as scheduled If your symptoms worsen call your PCP, if no PCP go to Urgent Care Center or Emergency Room Smoking is Dangerous to Your Health. Avoid second hand smoke Call the 24-hour hour crisis hotline for domestic abuse at Genesis Baldwin MD R3 February 02, 2018 13:46
--- NOTE | 2018-02-02 14:26 | EKG ---
Date Performed: 02/01/2018 Time Performed: 12:15:29 PTAGE: 37 years EKG: Sinus rhythm NORMAL ECG PREVIOUS TRACING : 04/03/2011 13.44 DOCTOR: Micah Escobar Interpretating Date/Time 02/02/2018 14:24:59
[2018-02-02 14:44] LABS: CHOLESTEROL/ HDL RATIO 7.65 RATIO; HDL CHOLESTEROL 28.2 MG/DL (40.0-60.0)
[2018-02-02 16:25] VITALS: BP 117/65; PULSE 90; RESP 18; TEMP 97.8; O2SAT 98
== END 2018-02-02 18:01 | disposition home or self-care (01) ==
LOC: NEPC 12:01 → NEDA 15:28 → NEPGCP 17:16
PROVIDERS: ADMIT Family Medicine; ATTEND Family Medicine
DX: I95.1 Orthostatic hypotension (principal); N39.0 Urinary tract infection, site not specified; Z86.73 Personal history of transient ischemic attack (TIA), and cerebral infarction without residual deficits; G89.29 Other chronic pain; M54.2 Cervicalgia; J45.909 Unspecified asthma, uncomplicated; I10 Essential (primary) hypertension; E78.00 Pure hypercholesterolemia, unspecified; R07.9 Chest pain, unspecified; I34.1 Nonrheumatic mitral (valve) prolapse; I25.2 Old myocardial infarction; G43.909 Migraine, unspecified, not intractable, without status migrainosus; R56.9 Unspecified convulsions; F12.90 Cannabis use, unspecified, uncomplicated; F17.210 Nicotine dependence, cigarettes, uncomplicated; F41.9 Anxiety disorder, unspecified; M79.7 Fibromyalgia; M47.9 Spondylosis, unspecified; G47.00 Insomnia, unspecified; B19.20 Unspecified viral hepatitis C without hepatic coma; R27.8 Other lack of coordination; F41.1 Generalized anxiety disorder; K92.1 Melena; B95.2 Enterococcus as the cause of diseases classified elsewhere
CPT/HCPCS: 70450; 70551; 80053; 80061; 80307; 81001; 82140; 82550; 82948; 83735; 84484; 84703; 85025; 85610; 85730; 87077; 87086; 87186; 92522; 93005; 93880; 96360; 97161; 97166; 99285; G0378; G8987; G8988; G8999; G9158; G9186; J1650; J1815; J7030